=== PATIENT | female | born 1950 | race Caucasian/White ===

== ENCOUNTER → 2022-02-23 | Outpatient (CLI) | payer MEDICARE, OTHER ==
[~2022-02-23] MED LIST: KENALOG0.1% TP; VISTARIL25 M1 PO
[2022-02-23 11:21] LABS: BUN 13 mg/dl (7-24); CHLORIDE 108 mmol/L (98-107); CHOLESTEROL 177 mg/dL (<200); CREATININE 0.69 mg/dL (0.55-1.02); LDL CHOLESTEROL 101 mg/dL (9-159); POTASSIUM 3.8 mmol/L (3.5-5.1); SODIUM 140 mmol/L (136-145); TRIGLYCERIDES 79 mg/dl (<150)
== END | disposition home or self-care (01) ==
LOC: LAB 10:45
PROVIDERS: ATTEND Internal Medicine
DX: E03.9 Hypothyroidism, unspecified (principal)